=== PATIENT | male | born 1960 ===

== ENCOUNTER → 2017-12-15 13:00 | Outpatient (REF) | payer OTHER, SELFPAY ==
[2017-12-15 13:44] LABS: Alanine Aminotransferase 31 IU/L (21-72); Albumin 4.5 g/dL (3.5-5.0); Albumin Globulin Ratio 1.4 (1.0-2.8); Alkaline Phosphatase 42 U/L (38-126); Aspartate Aminotransferase 25 IU/L (17-59); BUN Creatinine Ratio 22.9 (6-22); Bilirubin Total 1.1 mg/dL (0.2-1.3); Blood Urea Nitrogen 16 mg/dL (9-20); Calcium 9.7 mg/dL (8.4-10.2); Carbon Dioxide 33 mmol/L (22-32); Chloride 100 mmol/L (98-107); Cholesterol 198 mg/dL (140-199); Estimated Glomerular Filt Rate > 60.0 mL/min (>60); Globulin 3.3 g/dL (1.7-4.1); Glucose 96 mg/dL (70-100); HDL Cholesterol 39 mg/dL (40-60); HEMOLYSIS < 15 (0-50); LDL Cholesterol Calculated 139 mg/dL (<100); Potassium 4.3 mmol/L (3.4-5.1); Sodium 143 mmol/L (137-145); Total Protein 7.8 g/dL (6.3-8.2); Triglycerides 98 mg/dL (35-150)
[2017-12-15 14:12] LABS: Prostate Specific Antigen 0.538 ng/mL (0.10-4.00)
== END ==
LOC: LAB 13:00
PROVIDERS: Visit Provider Family Medicine
DX: Z12.5 Encounter for screening for malignant neoplasm of prostate (principal); Z13.6 Encounter for screening for cardiovascular disorders; Z13.1 Encounter for screening for diabetes mellitus; Z13.228 Encounter for screening for other metabolic disorders
CPT/HCPCS: 36415; 80053; 80061; 84153

== ENCOUNTER → 2018-05-12 14:39 | Outpatient (REF) | payer OTHER, SELFPAY | LOC: LAB 14:39 | PROVIDERS: Visit Provider Dermatology | DX: R21 Rash and other nonspecific skin eruption (principal); D22.39 Melanocytic nevi of other parts of face; B35.3 Tinea pedis; L28.0 Lichen simplex chronicus | CPT/HCPCS: 87102 ==